=== PATIENT | male | born 1950 | race Caucasian/White ===

== ENCOUNTER → 2017-07-02 | Day surgery (SDC) | payer BC ==
[2017-07-01 12:49] VITALS: Ht 175.3 cm; Wt 79.5 kg
[~2017-07-02] VITALS: Ht 175.3 cm; Wt 79.5 kg
[~2017-07-02] MED LIST: B-COTAB18 PO; CLR10 PO; LIDOCAINE HCL 2% 2 ML VIAL (20MG/ML) ONE; LOSA1TAB PO; METO25TA56 PO; MULT-506 PO; OMEG10007 PO; PROPOFOL IV EMULSION 10 MG/ML 20 ML VIAL IV ONE; RABE20TA5 PO; SIMV40TA2 PO; SODIUM CHLORIDE 0.9% 500ML 500 ML IV ONE
[2017-07-02 09:04] VITALS: TEMP 36.8
--- NOTE | 2017-07-02 09:21 | Endo History and Physical ---
History & Physical Date of Service: Jul 02, 2017. Chief Complaint: GERD Referring Physician: ISHA RETANA PA-C History of Present Illness Patient has worsening GERD Past Surgical History Hx Cardiac Surgery: No Hx Internal Defibrillator: No Hx Pacemaker: No Hx Abdominal Surgery: Yes (APPY) Hx of Implantable Prosthesis: No Hx Post-Op Nausea and Vomiting: No Hx Cancer Surgery: No Hx Thoracic Surgery: No Hx Orthopedic: Yes (RT MICA) Hx Urinary Tract Surgery: No Family History Colon CA Social History Smoking Status: Former Smoker Hx Substance Use: No Hx Alcohol Use: Yes Allergies Coded Allergies: Morphine (Verified Allergy, Unknown, CAUSES AGITATION, 07/02/17) Sulfa Drugs (Verified Allergy, Unknown, RASH AND NAUSEA, 07/02/17) Uncoded Allergies: SLEEPING AIDES (Allergy, Unknown, JITTERY, 02/19/16) Current Medications Reported Home Medications Medications Dose Route/Sig Max Daily Dose Days Date Category Cozaar (Losartan Potassium) 25 Mg Tab 25 Mg PO QAM 07/01/17 Reported Lopressor (Metoprolol Tartrate) 25 Mg Tab 25 Mg PO BID 07/01/17 Reported Claritin (Loratadine) 10 Mg Tab 10 Mg PO DAILY PRN 02/19/16 Reported [place]-3 (Fish Oil) 1 Ea Cap 1 Cap PO QAM 02/19/16 Reported Vitamin B Complex (B-Complex Vitamins) 1 Tab Tab 1 Tab PO QAM 02/19/16 Reported Multivitamin (Multivitamins) Tab 1 Tab PO QAM 02/19/16 Reported Aciphex (Rabeprazole Sodium) 20 Mg Tab 20 Mg PO QAM 02/19/16 Reported Zocor (Simvastatin) 40 Mg Tab 40 Mg PO QPM 02/19/16 Reported Vital Signs Weight (Kilograms): 79.55 Height (Feet): 5 Height (Inches): 9 Date Time Temp Pulse Resp B/P (MAP) Pulse Ox O2 Delivery O2 Flow Rate FiO2 07/02/17 09:04 36.8 46 24 120/78 (92) 97 Room Air Physical Exam General Appearance: no apparent distress Respiratory/Chest: Auscultation: breath sounds normal Cardiovascular: Heart Auscultation: RRR Abdomen: Inspection & Palpation: soft Liver: non-tender Assessment and Plan Stable for EGD.
--- NOTE | 2017-07-02 09:55 | Discharge Instructions ---
Endoscopy Patient Instructions Date / Procedure(s) Performed Jul 02, 2017. EGD Allergy Information Coded Allergies: Morphine (Verified Allergy, Unknown, CAUSES AGITATION, 07/02/17) Sulfa Drugs (Verified Allergy, Unknown, RASH AND NAUSEA, 07/02/17) Uncoded Allergies: SLEEPING AIDES (Allergy, Unknown, JITTERY, 02/19/16) Discharge Date / Findings Jul 02, 2017. Normal esophagus. Mild Gastritis, biopsied. Gastric polyps, removed. Normal duodenum Provider Instructions Activity Restrictions - No exercising or heavy lifting for 24 hours. - Do not drink alcohol the day of the procedure. - Do not drive a car or operate machinery until the day after the procedure. - Do not make any important decisions or sign important papers in 24 hours after the procedure. Following Day: - Return to full activity which may include returning to work/school. Diet Start your diet with liquids and light foods (jello, soup, juice, toast). Then eat your usual diet if not nauseated. Treatment For Common After Affects For mild abdominal pain, bloating, or excessive gas: - Rest - Eat lightly - Lie on right side Follow-Up Information Follow-up with ISHA RETANA PA-C as scheduled Anesthesia Information What You Should Know You have had a procedure that required some medicine to reduce anxiety and discomfort. This treatment is called moderate sedation. After receiving the treatment, you may be sleepy, but you will be able to breathe on your own. The effects of the treatment may last for several hours. Follow these instructions along with Activity/Diet recommendations noted above: * Do NOT do anything where dizziness or clumsiness would be dangerous. * Rest quietly at home today, then you can be up and about tomorrow. * Have a responsible person stay with you the rest of today. * You may have had an I.V. today. If so, you may take the dressing off later today. Recommendations Call your doctor if: * Trouble breathing * Continuous vomiting for more than 24 hours * Temperature above 101 degrees * Severe abdominal pain or bloating * Pain not relieved by pain medicine ordered * There is increased drainage or redness from any incision * A large amount of rectal bleeding greater than 2-3 tablespoons. (If you had a polyp/s removed or have hemorrhoids, a small amount of blood - from the rectum is to be expected.) * You have any unanswered questions or concerns. IN THE EVENT OF A SERIOUS EMERGENCY, GO TO THE NEAREST EMERGENCY ROOM Your discharge instructions were prepared by provider Dora Simpson. Patient Instructions Signature Page Naveen Cruz Patient (or Guardian) Signature/Date: I have read and understand the instructions given to me by my caregivers. Caregiver/RN/Doctor Signature/Date: The above-named patient and/or guardian has received patient instructions on this date. + Original Patient Signature Page (only) stays with chart. Please make copy for patient.
--- NOTE | 2017-07-02 10:02 | GI REPORT ---
Procedure Date: 07/02/2017 9:08 AM Procedure: Upper GI endoscopy Indications: Heartburn, Suspected gastro-esophageal reflux disease Medicines: Monitored Anesthesia Care Complications: No immediate complications. Estimated Blood Loss: Estimated blood loss: none. Procedure: Pre-Anesthesia Assessment: - Prior to the procedure, a History and Physical was performed, and patient medications and allergies were reviewed. The patient is competent. The risks and benefits of the procedure and the sedation options and risks were discussed with the patient. All questions were answered and informed consent was obtained. Patient identification and proposed procedure were verified by the physician and the nurse in the procedure room. Mental Status Examination: alert and oriented. Airway Examination: normal oropharyngeal airway and neck mobility. Respiratory Examination: clear to auscultation. CV Examination: normal. ASA Grade Assessment: II - A patient with mild systemic disease. After reviewing the risks and benefits, the patient was deemed in satisfactory condition to undergo the procedure. The anesthesia plan was to use monitored anesthesia care (MAC). Immediately prior to administration of medications, the patient was re-assessed for adequacy to receive sedatives. The heart rate, respiratory rate, oxygen saturations, blood pressure, adequacy of pulmonary ventilation, and response to care were monitored throughout the procedure. The physical status of the patient was re-assessed after the procedure. After obtaining informed consent, the endoscope was passed under direct vision. Throughout the procedure, the patient's blood pressure, pulse, and oxygen saturations were monitored continuously. The scope was introduced through the mouth, and advanced to the second part of duodenum. The upper GI endoscopy was accomplished without difficulty. The patient tolerated the procedure well. Findings: The examined esophagus was normal. Two 4 mm sessile polyps with no stigmata of recent bleeding were found in the gastric body. The polyp was removed with a cold biopsy forceps. Resection and retrieval were complete. Localized mildly erythematous mucosa was found in the gastric antrum. Biopsies were taken with a cold forceps for Helicobacter pylori testing. Biopsies were taken with a cold forceps for histology. Verification of patient identification for the specimen was done by the physician and nurse using the patient's name and date. The duodenal bulb and second portion of the duodenum were normal. Impression: - Normal esophagus. - Two gastric polyps. Resected and retrieved. - Erythematous mucosa in the antrum. Biopsied. - Normal duodenal bulb and second portion of the duodenum. Recommendation: - Discharge patient to home. - Follow an antireflux regimen. - Await pathology results. - Increase Aciphex (rabeprazole) to 20 mg PO BID. - Trial of sucralfate tablets 1 gram PO QID for 2 weeks. - If no improvement, consider Fernandes PH study. - Return to referring physician. Dora Simpson MD 07/02/2017 10:01:56 AM This report has been signed electronically. Note Initiated On: 07/02/2017 9:08 AM I attest to the content of the Intraoperative Record and orders documented therein, exceptions below
[2017-07-02 10:25] VITALS: BP 119/72; PULSE 42; O2SAT 97
--- NOTE | 2017-07-02 10:30 | Anesthesiology Progress Note ---
Anesthesia Post Op Note Date & Time Jul 02, 2017 at 10:30 Vital Signs Pain Intensity: 0 Vital Signs Past 12 Hours Date Time Temp Pulse Resp B/P (MAP) Pulse Ox O2 Delivery O2 Flow Rate FiO2 07/02/17 10:25 42 16 119/72 (88) 97 Room Air 07/02/17 10:09 45 16 121/70 (87) 95 Room Air 07/02/17 09:54 45 16 106/55 (72) 95 Room Air 07/02/17 09:04 36.8 46 24 120/78 (92) 97 Room Air Notes Mental Status: alert / awake / arousable, participated in evaluation Pt Amnestic to Procedure: Yes Nausea / Vomiting: adequately controlled Pain: adequately controlled Airway Patency, RR, SpO2: stable & adequate BP & HR: stable & adequate Hydration State: stable & adequate Anesthetic Complications: no major complications apparent
== END | disposition home or self-care (01) ==
LOC: C.GI 08:46
PROVIDERS: ATTEND Student in an Organized Health Care Education/Training Program
DX: K21.9 Gastro-esophageal reflux disease without esophagitis (principal); K31.7 Polyp of stomach and duodenum; K29.50 Unspecified chronic gastritis without bleeding; I10 Essential (primary) hypertension; E78.5 Hyperlipidemia, unspecified; Z90.89 Acquired absence of other organs; Z96.641 Presence of right artificial hip joint; Z80.0 Family history of malignant neoplasm of digestive organs; Z87.891 Personal history of nicotine dependence; Z88.5 Allergy status to narcotic agent; Z88.2 Allergy status to sulfonamides; Z88.8 Allergy status to other drugs, medicaments and biological substances